=== PATIENT | male | born 1975 | race Caucasian/White ===

== ENCOUNTER 2016-08-31 15:06 | Emergency (ER) | payer OTHER, MEDICARE ==
[~2016-08-31] VITALS: Ht 182.9 cm; Wt 90.9 kg
[2016-08-31] MEDS ORDERED: MOTRIN800 MG PO (16:46)
[2016-08-31] MEDS ORDERED: TRAMADOL HYDROC50 MG PO (16:46)
[2016-08-31] MEDS ORDERED: FLEXERIL PO (16:46)
[2016-08-31 17:33] VITALS: BP 133/64
== END 2016-08-31 17:33 | disposition home or self-care (01) | DRG 563 ==
LOC: ED 15:06 → EDBD 15:06 → ED 15:45
DX: S53.401A Unspecified sprain of right elbow, initial encounter (principal); S63.501A Unspecified sprain of right wrist, initial encounter; S93.601A Unspecified sprain of right foot, initial encounter; S70.01XA Contusion of right hip, initial encounter; S50.01XA Contusion of right elbow, initial encounter; S90.811A Abrasion, right foot, initial encounter; S60.811A Abrasion of right wrist, initial encounter; S50.311A Abrasion of right elbow, initial encounter; V23.4XXA Motorcycle driver injured in collision with car, pick-up truck or van in traffic accident, initial encounter; Y92.410 Unspecified street and highway as the place of occurrence of the external cause